=== PATIENT | male | born 1970 | race Caucasian/White ===

== ENCOUNTER 2019-04-16 21:19 | Emergency (ER) | payer BC, SELFPAY ==
[2019-04-16 21:23] VITALS: BP 148/114; PULSE 98; RESP 18; TEMP 36.2; O2SAT 97
--- NOTE | 2019-04-16 21:25 | ED.GENADUL_ITS ---
Discharge Plan Disposition Patient Disposition: HOME Condition: Good Discharge Details Chief Complaint: Orthopedic Clinical Impression: Foot sprain Primary Care Provider: Renaldo Taylor ED Provider: Cyndi Rousseau Home Meds and New Rx's Prescriptions: New tramadol 50 mg tablet 50 mg PO Q6H PRN (Reason: pain) Qty: 5 RF: 0 Discharge Instructions Instructions: Tramadol (By mouth), Foot Sprain (ED) Additional Instructions: Encourage hydration. Encourage rest, ice, elevation. You may try topical options help with your discomfort such as Salonpas or lidocaine patches. Please follow-up with primary care in the next 1 to 2 weeks if not improving. If you develop any new or worsening symptoms please seek care urgently once again. If topical options are not sufficient, you may use the tramadol as prescribed, may take 1 tab every [address] for pain[address] not drive while taking this medication Referrals: Renaldo Taylor MD [Primary Care Provider] - Discharge Data Discharge Date/Time-TO BE ENTERED AT DEPARTURE: 04/16/19 23:47 Medical Decision Making Patient is a 48-year-old male his , chief complaint of right foot and ankle pain. He reports that yesterday he was at [place] with his daughter. Jumped off of the knee height fall onto a 6 inch foam pad and suffered a rotational injury. Immediately had pain. However, he was able to continue to participate in activities throughout the course the day. 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 It was after being sedentary at home after work that he developed excruciating pain. Began using crutches just prior to arrival. To take 1 of his 's tramadol's prior to arrival. Is endorsing pain on the dorsal aspect of the foot, notes a small area of swelling and ecchymosis. States his pain does go up into the anterior aspect of the ankle. Pain is worse with dorsiflexion and weightbearing status. Denies any altered sensation. Denies other injury the time the incident. And concern for possible Lisfranc injury. Plan for imaging. XR reviewed by radiologist: FINDINGS: Bones/joints: No acute fracture. Joint spaces are maintained. No ankle joint effusion. Soft tissues: Soft tissues are unremarkable. IMPRESSION: No acute fracture or traumatic joint malalignment. Consider CT or comparison to non weight-bearing view there is persistent concern for Lisfranc injury. Will order comparison weight bearing view of contralateral foot FINDINGS: Bones/joints: No acute fracture. Joint spaces are maintained. No joint effusion. Soft tissues: Soft tissues are unremarkable. IMPRESSION: No acute fracture or traumatic joint malalignment. Repeat imaging: IMPRESSION: No acute findings. In comparison to same day right foot radiograph, there is symmetric appearance of the bilateral Lisfranc joint complexes. Discussed these findings with the patient. Advised likely sprain strain. I encouraged rest, ice, elevation. Tylenol and/or ibuprofen as needed for discomfort. He did feel much relief when he was wearing his tight work boots today. I think he will benefit from a lace up ankle brace which will cover the foot and the ankle. He was given return precautions. Advised to follow-up with primary care in 2 weeks if not improving. He will continue to use crutches as needed. All of his questions and concerns were addressed and he is in agreement this plan. HPI General Mode of arrival: ambulatory (with crutches) . Date/Time Provider Initiated Documentation: 04/16/19 21:25 . Limitations to Documentation: no limitations . Information obtained by: patient, family () and RN notes reviewed . History of Present Illness 48 year old M presents to the emergency department with the chief complaint of right foot/ankle pain, described as moderate, with intensity rated at 8. Quality is described as aching, and is localized to the right and lower extremity. Patient reports no radiation. Patient started experiencing this day(s) (1) and it has been constant. Immobilization improves symptom(s), Movement worsens symptoms (worse when weight bearing) . Patient notes no other symptoms.. Patient did receive the following treatments prior to arrival, other (tramadol) Related Data Home Medications Medication Instructions Recorded Confirmed tramadol 50 mg PO Q6H PRN #5 tab 04/16/19 Previous Rx's Medication Instructions Recorded tramadol 50 mg PO Q6H PRN #5 tab 04/16/19 Allergies Allergy/AdvReac Type Severity Reaction Status Date / Time acetaminophen Allergy Severe Swelling/Ed Unverified 04/16/19 21:33 arlen ibuprofen Allergy Severe Swelling/Ed Unverified 04/16/19 21:33 arlen Review of Systems Constitutional Constitutional: Reports as per HPI, Denies chills, Denies fever(s), Denies headache(s) and Denies weakness ENT Ears, Nose, Mouth, and Throat: Denies headache(s) Cardiovascular Cardiovascular: Reports as per HPI Respiratory Respiratory: Reports as per HPI and Denies cough Musculoskeletal Musculoskeletal: Reports as per HPI and Denies tingling Integumentary/Breasts Skin/Breast: Reports as per HPI, Denies rash and Denies wounds Neurologic Neurologic: Reports as per HPI, Denies headache(s), Denies tingling, Denies paresthesias and Denies weakness [facility] Social History Smoking/Tobacco Use Status: Former Tobacco Use Drug use: Never Substance use type: does not use Do you feel safe at home: Yes Do you feel safe in your relationship?: Yes Exam Const General: cooperative, healthy appearing, comfortable, no acute distress, well developed and well groomed Nutritional Appearance: average body habitus and well nourished Orientation: alert and awake Resp Effort & Inspection: normal respiratory effort, able to speak in complete sentences and no respiratory distress Cardio Rate: regular rate Rhythm: regular rhythm Skin General skin exam: ecchymosis Neuro General: alert and awake Cognition: normal cognition Speech: speech normal Gait: normal gait Motor: muscle tone normal throughout Sensory Exam: no sensory deficits noted Extrem Right lower extremity: full ROM, normal capillary refill, knee Details: normal to inspection; no tenderness and no swelling, lower leg Details: normal to inspection and no edema; no tenderness, no localized swelling, no palpable cords, no ecchymosis, no crepitus, no deformity and no unusual warmth, ankle Details: normal to inspection, tenderness Location: anteriorly, no edema and normal ROM (pain with dorsiflexion); no swelling, no unusual warmth, no abrasions, no ecchymosis, no crepitus and achilles tendon exam normal and foot Details: normal capillary refill, tenderness Location: of the dorsal foot Location: proximally and over the Lisfranc joint and of the mid foot; not of the plantar foot, not of the great toe, not of any other digit, not of the calcaneus and not of the base of the 5th metatarsal, toes with normal ROM, no edema, ecchymosis (as drawn below), vascular exam Details: dorsalis pedis pulse present, posterior tibial pulse present and normal capillary refill and motor- sensory exam Details: light-touch normal; no unusual warmth, no edema, no abrasion, no laceration and no crepitus; no cyanosis Ankle/foot/toe images: 1. small area of ecchymosis with surrounding swelling Psych Appearance: grossly normal and well kempt Mental Status: mental status grossly normal Speech and Movement: speech and movement normal
--- NOTE | 2019-04-16 21:45 | DI.RAD_ITS ---
EXAM: XR FOOT RT COMPLETE INDICATION: midfoot pain,jumping injury,? Lisfranc injury COMPARISON: RIGHT FOOT COMPLETE from 09/18/2010 TECHNIQUE: 2D digital imaging was performed. FINDINGS: No fracture or dislocation is seen. There is a high plantar arch. There are degenerative changes at the talonavicular joint and to a lesser extent at the tarsal metatarsal joints. IMPRESSION: No acute abnormality.
--- NOTE | 2019-04-16 21:45 | DI.RAD_ITS ---
EXAM: XR ANKLE RT COMPLETE INDICATION: anterior pain,KUMPED FROM LANDING,? LISFRANC INJURY COMPARISON: No exams were available for comparison TECHNIQUE: 2D digital imaging was performed. FINDINGS: There is mild soft tissue swelling around the lateral malleoli. No fracture or ankle mortise widenin g is seen. There is spurring at the talonavicular joint. IMPRESSION: No acute abnormality.
--- NOTE | 2019-04-16 22:27 | DI.VRAD_ITS ---
PROCEDURE INFORMATION: Exam: XR Right Foot Complete Exam date and time: 04/16/2019 9:47 PM Age: 48 years old Clinical history: Injury or trauma; Injury history: 04/16/19; Initial encounter; Blunt trauma; Ankle and foot; Right; Injury details: Jumped onto a foam mat and pain mid foot and ankle. ; Additional info: Concern for lisfranc injury so images done weight bearing TECHNIQUE: Imaging protocol: XR Right foot. Views: 3 or more views. COMPARISON: No relevant prior studies available. FINDINGS: Bones/joints: No acute fracture. Joint spaces are maintained. No ankle joint effusion. Soft tissues: Soft tissues are unremarkable. IMPRESSION: No acute fracture or traumatic joint malalignment. Consider CT or comparison to non weight-bearing view there is persistent concern for Lisfranc injury. Dictated and Authenticated by: Zach Flores MD. Ordering:AMIRA Hanna MD
--- NOTE | 2019-04-16 22:30 | DI.VRAD_ITS ---
PROCEDURE INFORMATION: Exam: XR Right Ankle Exam date and time: 04/16/2019 9:47 PM Age: 48 years old Clinical history: Injury or trauma; Injury history: Jumped landing on a foam mat. Mid foot and ankle pain; Initial encounter; Blunt trauma; Ankle and foot; Right; Injury date: 04/16/19; Injury details: Ankle pain with weight bearing TECHNIQUE: Imaging protocol: XR Right ankle. Views: 3 or more views. COMPARISON: CR XR FOOT RT COMPLETE 04/16/2019 10:01 PM FINDINGS: Bones/joints: No acute fracture. Joint spaces are maintained. No joint effusion. Soft tissues: Soft tissues are unremarkable. IMPRESSION: No acute fracture or traumatic joint malalignment. Dictated and Authenticated by: Zach Flores MD. Ordering:AMIRA Hanna MD
--- NOTE | 2019-04-16 22:42 | DI.RAD_ITS ---
EXAM: XR FOOT LT LIMITED INDICATION: comparison weight bearing view. COMPARISON: RIGHT FOOT COMPLETE from 09/18/2010 XR ANKLE RT COMPLETE from 04/16/2019 XR FOOT RT COMPLETE from 04/16/2019 TECHNIQUE: 2D digital imaging was performed. FINDINGS: Weightbearing views are performed for comparison with the right foot. There is a tiny plantar calcan eal spur. There is a small, smoothly marginated bony density seen posterior to the talus. There is a high plantar arch. There are minimal degenerative changes. IMPRESSION: No acute abnormality.
--- NOTE | 2019-04-16 23:03 | DI.VRAD_ITS ---
PROCEDURE INFORMATION: Exam: XR Left Foot Exam date and time: 04/16/2019 10:42 PM Age: 48 years old Clinical history: Screening exam; Patient HX: No injury, comparison images done weightbearing TECHNIQUE: Imaging protocol: XR Left foot. Views: 1 or 2 views. COMPARISON: CR LEFT ANKLE COMPLETE 12/02/2013 12:13 PM FINDINGS: Bones/joints: Normal. Soft tissues: Normal. IMPRESSION: No acute findings. In comparison to same day right foot radiograph, there is symmetric appearance of the bilateral Lisfranc joint complexes. Dictated and Authenticated by: Zach Flores MD. Ordering:AMIRA Hanna MD
[2019-04-16] MEDS: traMADol 50 MG TAB 150 MG PO (23:47)
== END 2019-04-16 23:47 | disposition home or self-care (01) ==
PROVIDERS: Emergency Provider Physician Assistant; PCP Family Medicine
DX: S93.601A Unspecified sprain of right foot, initial encounter (principal); W18.43XA Slipping, tripping and stumbling without falling due to stepping from one level to another, initial encounter; Y93.44 Activity, trampolining
CPT/HCPCS: 99283; 73610; 73620; 73630; 99282; L1902

== ENCOUNTER 2020-09-24 01:43 | Outpatient (CLI) | payer MEDICAID, SELFPAY ==
--- NOTE | 2020-09-24 | DI.RAD_ITS ---
Exam(s) XR KNEE RT 3V AP,LAT,BALJIT EXAM: XR KNEE RT 3V AP,LAT,BALJIT CLINICAL HISTORY: RT KNEE PAIN, M25.569 TECHNIQUE: COMPARISON: CR XR KNEE LT 3V AP,LAT,BALJIT from 09/24/2020 FINDINGS: Three views were obtained. Cartilaginous joint spaces appear fairly well maintained as visualized. No gross knee joint effusion seen on the lateral view. No bony abnormality seen. IMPRESSION: RADIATION DOSE DELIVERED: Total DLP
--- NOTE | 2020-09-24 | DI.RAD_ITS ---
Exam(s) XR KNEE LT 3V AP,LAT,BALJIT EXAM: XR KNEE LT 3V AP,LAT,BALJIT CLINICAL HISTORY: LT KNEE PAIN, M25.569 TECHNIQUE: COMPARISON: No exams were available for comparison FINDINGS: Three views were obtained. Cartilaginous joint spaces appear fairly well maintained as visualized. No significant bony abnormality seen. No gross knee joint effusion seen on the lateral view. IMPRESSION: RADIATION DOSE DELIVERED: Total DLP
== END 2020-09-24 02:03 ==
PROVIDERS: PCP Family Medicine; Visit Provider Physician Assistant
DX: M25.561 Pain in right knee (principal); M25.562 Pain in left knee
CPT/HCPCS: 73562

== ENCOUNTER 2020-10-13 07:41 | Outpatient (REF) | payer MEDICAID, SELFPAY ==
[2020-10-13 17:05] LABS: Anion Gap 8.6 mmol/L (3-11); BUN 20 mg/dL (7-18); CO2 28.4 mmol/L (21.0-32.0); CREATININE 1.6 mg/dL (0.70-1.30); Calcium 9.4 mg/dL (8.5-10.1); Calculated LDL 200 mg/dL (<100); Chloride 105 mmol/L (98-107); Cholesterol 281 mg/dL (<200); Estimated GFR 45.98 (mL/min/1.73m2); Glucose 112 mg/dL (74-106); HDL Cholesterol 56 mg/dL (40-60); Potassium 4.7 mmol/L (3.5-5.1); Sodium 142 mmol/L (136-145); Triglyceride 128 mg/dL (<150)
[2020-10-14 09:01] LABS: PSA, Screening 0.7 ng/mL (0.0-3.5)
== END 2020-10-13 07:42 | disposition home or self-care (01) ==
LOC: NCHCN 07:41
PROVIDERS: PCP Family Medicine; Visit Provider Physician Assistant
DX: Z13.220 Encounter for screening for lipoid disorders (principal); Z13.228 Encounter for screening for other metabolic disorders; Z12.5 Encounter for screening for malignant neoplasm of prostate
CPT/HCPCS: 80048; 80061; 84153

== ENCOUNTER 2021-04-03 03:17 | Outpatient (CLI) | payer MEDICAID, SELFPAY ==
[2021-04-03 11:01] LABS: Source Nasal/Nares
[2021-04-03 15:42] LABS: COVID-19 PCR Negative (Negative)
== END 2021-04-03 03:18 | disposition home or self-care (01) ==
LOC: LBO 03:17
PROVIDERS: PCP Physician Assistant; Visit Provider Surgery
DX: Z20.822 Contact with and (suspected) exposure to COVID-19 (principal); Z01.818 Encounter for other preprocedural examination
CPT/HCPCS: 87635

== ENCOUNTER 2021-04-06 06:22 | Day surgery (SDC) | payer MEDICAID, SELFPAY ==
[2021-04-06 06:30] VITALS: BP 123/81; PULSE 62; RESP 16; TEMP 36.2; O2SAT 98
--- NOTE | 2021-04-06 06:42 | HPE_ITS ---
Date of service: 04/06/21 Time of Service: 06:42 Assessment and Plan Assessment and plan (1) Screening for colon cancer: Status: Acute Assessment and plan: The patient is here for Colonoscopy pre-op. He has no family history of colon cancer. He has not had any bowel habit changes. -Discussed colonoscopy bowel prep as well as the procedure. Discussed possible complications of the procedure to include bleeding, pain, perforation, missed small lesion/polyp, sore throat, aspiration and adverse reaction to the medications. Questions were answered to patient?s satisfaction. No guarantees were implied or given. Proceed with colonoscopy History of Present Illness Narrative: 50 y/o male with history of hyperlipidemia presents for his first colonoscopy screening pre-op. He denies a family history of colon cancer. He denies any changes in bowel habits including bloody or black tarry stools, abdominal pain, diarrhea or constipation. He denies constitutional symptoms. Denies use of marijuana or any other recreational or illegal drugs. He denies chest pain, palpitations, dyspnea or dyspnea with exertion. He reports being physically active participating in outdoor activities and mountain biking. He denies prior history or family history of adverse reactions or complications with anesthesia. The patient denies any history of stroke, [place], seizures, bleeding or clotting disorders. He denies having any implanted metal in his body. No changes in his health since he was seen Review of Systems Cardiovascular Cardiovascular: Denies chest pain, Denies chest pain at rest, Denies irregular heart rhythm, Denies dyspnea and Denies dyspnea on exertion Respiratory Respiratory: Denies cough, Denies dyspnea and Denies dyspnea on exertion Gastrointestinal Gastrointestinal: Reports as per HPI Genitourinary Genitourinary: Denies dysuria, Denies urinary incontinence and Denies urinary urgency Endocrine Endocrine: Reports system reviewed and no additional complaints, except as documented Hematologic/Lymphatic Hematologic/Lymphatic: Denies easy bruising and Denies lymphadenopathy [facility] Medical History (Updated 04/06/21 @ 06:43 by Lana Levin MD) Headache Hyperlipidemia Pityriasis versicolor Solitary kidney Social History Smoking/Tobacco Use Status: Former Tobacco Use Quit Date: 05/23/19 Smoking risk assessment performed?: Yes Alcohol Intake: current Alcohol Intake frequency: holidays/special occasions only Alcohol type: beer and hard liquor Drug use: Never Substance use type: does not use Current gender identity: male Additional Social history: unable to assess [employer] Meds Allergies and Home Medications Allergies Allergy/AdvReac Type Severity Reaction Status Date / Time acetaminophen Allergy Severe Swelling/Ed Unverified 04/06/21 06:37 arlen ibuprofen Allergy Severe Swelling/Ed Unverified 04/06/21 06:37 arlen aspirin Allergy Intermediate unhknown Verified 04/06/21 06:37 Home Medications Medication Instructions Recorded Confirmed Type bisacodyl 5 mg tablet,delayed 5 mg PO ONCE #4 tab 02/26/21 04/06/21 Rx release polyethylene glycol 3350 17 238 g PO ONCE #238 g 02/26/21 04/06/21 Rx gram/dose oral powder Exam Const General: healthy appearing and comfortable Resp Effort & Inspection: normal respiratory effort Auscultation: clear to auscultation bilaterally Cardio Rate: regular rate Rhythm: regular rhythm Heart Sounds: no click, no gallops and no murmurs Results Last Vital Signs Temp 97.2 F L 04/06/21 06:30 Pulse 62 04/06/21 06:30 Resp 16 04/06/21 06:30 BP 123/81 04/06/21 06:30 Pulse Ox 98 04/06/21 06:30
--- NOTE | 2021-04-06 06:44 | W.COLOREPORT ---
Colonoscopy Report Date of procedure: 04/06/21 Pre-op diagnosis general: Colon Cancer Screening Post-op diagnosis procedure note: other (colorectal polyps) Procedure: Colonoscopy with polypectomy Surgeon: Lana Levin Anesthesia Type: General:No Airway (Jonel Leyva CRNA) Estimated blood loss (mL): 3 Pathology: other (Transverse, descending and sigmoid polyps) Complications: None Disposition: same day Indications: The patient is here for Colonoscopy pre-op. He has no family history of colon cancer. He has not had any bowel habit changes. -Discussed colonoscopy bowel prep as well as the procedure. Discussed possible complications of the procedure to include bleeding, pain, perforation, missed small lesion/polyp, sore throat, aspiration and adverse reaction to the medications. Questions were answered to patient?s satisfaction. No guarantees were implied or given. Prep: Miralax/Dulcolax Procedure Start Time: 07:29 Procedure End Time: 07:57 Retraction Time: 16 minutes Findings: 3 sessile polyps Procedure Description: After informed consent was obtained the patient was taken to the procedure room and placed in a left decubitous position. Monitors were applied and a time out was done. The patients name, date of , procedure, allergies to medications and metal in their body was reviewed. The patient was then sedated. Once sedated and comfortable a rectal exam was done. External exam was normal. Internal exam revealed a normal sphincter tone and no palpable masses. The prostate felt smooth and normal in size. The scope was then introduced and retro-flexed. No internal hemorrhoids, polyps or masses were identified on retro-flexion. The scope was then advanced to the cecum without difficulty. The ileocecal valve and appendiceal orifice were identified. The prep was good. The scope was then slowly retracted over 16 minutes back into the rectum. Polyps were removed with cold forceps in the Transverse colon, descending colon and sigmoid colon. All three polyps were < 10 mm in size. There was no diverticulosis noted. The scope was removed and the patient was woken up and taken back to Same day surgery in stable condition. The patient tolerated the procedure well and there were no immediate complications. Follow up: The patient should follow up in 3-5 years unless they develop changes in bowel habits or other new gastrointestinal complaints.
--- NOTE | 2021-04-06 06:45 | W.PM.DSUDISC ---
Discharge Plan Disposition Patient Disposition: HOME Condition: Good Discharge Details Reason For Visit: Colonoscopy Attending Provider: Lana Levin Primary Care Provider: Zach Pedraza Home Meds and New Rx's Prescriptions: Discontinued polyethylene glycol 3350 17 gram/dose powder 238 g PO ONCE Qty: 238 RF: 0 bisacodyl [Dulcolax (bisacodyl)] 5 mg tablet,delayed release (DR/EC) 5 mg PO ONCE Qty: 4 RF: 0 Discharge Instructions Instructions: Colorectal Polyps (DC) Additional Instructions: Findings: 3 polyps Follow up: 3-5 years Please call if you develop: fevers >101.5 Nausea or Vomiting Abdominal pain that is not transient Rectal bleeding that is more then a tbsp A hard abdomen and inability to pass gas DAY SURGERY UNIT POST ENDOSCOPY INSTRUCTIONS Instructions for everyone who is given Anesthesia: For your safety, please do the following for the next 24 Hours: a. Do not drive or operate dangerous equipment b. Do not drink alcohol beverages or use any recreational drugs for the first 24 hours or while taking pain medications. The medications in your body may have a reaction that can be dangerous. c. Do not make any important decisions or sign any important papers 1. Generally there are no restrictions on your activity after a day or so has gone by, but you may feel a bit fatigued for a few days. 2. After you arrive home you may have a light meal and return to a normal diet as you can tolerate it without feeling sick to your stomach. 3. After surgery, you may feel pain or discomfort. This should be only transient, but if it persists please contact your doctor. 4. If there are any questions regarding the findings of your procedure, please feel free to contact your doctor. 6. If you are unable to contact your doctor with a problem, contact the hospital at [phone]. 7. Continue all your regular medications unless directed otherwise. I understand the above instructions and have no questions. Signature of Patient or Responsible Adult Escort Date/Time Name of Responsible Adult Escort Signature of Nurse Date/Time Activity:: Activity as Tolerated Diet:: As Tolerated Discharge Orders Discharge Orders: Discharge Order (Routine); Ordered 04/06/21 Ordered By: Lana Levin DS: Diagnosis Discharge Diagnosis (1) Screening for colon cancer: Status: Acute
[2021-04-06] MEDS: Lactated Ringers 1,000 ML 80 ML IV (06:51)
--- NOTE | 2021-04-06 07:00 | W.ANESPRE ---
General Info Date of Service Date Performed: 04/06/21 Height: 5 ft 8 in Weight: 81.7 kg Body Mass Index (BMI): 27.3 Surgical Procedure: Operation Date: 04/06/21 07:35 Proposed Procedures Side Surgeon p Colonoscopy Lana Levin MD Meds Allergies and Home Medications Allergies Allergy/AdvReac Type Severity Reaction Status Date / Time acetaminophen Allergy Severe Swelling/Ed Unverified 04/06/21 06:37 arlen ibuprofen Allergy Severe Swelling/Ed Unverified 04/06/21 06:37 arlen aspirin Allergy Intermediate unhknown Verified 04/06/21 06:37 Home Medication Medication Instructions Recorded bisacodyl 5 mg tablet,delayed 5 mg PO ONCE #4 tab 02/26/21 release polyethylene glycol 3350 17 238 g PO ONCE #238 g 02/26/21 gram/dose oral powder Current Visit Medications: Current Medications Generic Name Dose Route Start Last Admin Trade Name Freq PRN Reason Stop Dose Admin Hyoscyamine Sulfate 0.125 mg 04/06/21 06:46 Hyoscyamine 0.125 Mg Sl/Oral/Chew SL DIRECTED PRN Ringer's Solution 1,000 mls @ 80 mls/hr 04/06/21 06:00 04/06/21 06:51 IV 05/03/21 23:59 80 mls/hr INFUSION CHELSEY Administration IV Miscellaneous Supplies 1 each 04/06/21 06:00 Iv Access IV 05/03/21 23:59 DIRECTED CHELSEY Ondansetron HCl 4 mg 04/06/21 06:46 Ondansetron 4 Mg/2 Ml Vial IVP Q4H PRN PRN Nausea / Vomiting Sodium Chloride 0 ml 04/06/21 06:00 Normal Saline Flush 10 Ml Syr IV 05/03/21 23:59 PRN PRN Sodium Chloride 0 ml 04/06/21 06:00 Normal Saline 10 Ml Vial IJ 05/03/21 23:59 DIRECTED PRN Sterile Water 0 ml 04/06/21 06:00 Water,Injection,Sterile 10 Ml Vial IJ 05/03/21 23:59 DIRECTED PRN PFSH Active Problems Active Problems: Problem Status Onset Code Screening for colon cancer Z12.11 Headache R51.9 Hyperlipidemia E78.5 Solitary kidney Q60.0 Pityriasis versicolor B36.0 Medical History Active Problem List Screening for colon cancer (Acute) Headache (Acute) Hyperlipidemia (Acute) Solitary kidney (Acute) Pityriasis versicolor (Acute) Medical History Broken leg and ribs Collar bone fracture Headache Hyperlipidemia Pityriasis versicolor Solitary kidney Tobacco Smoking/Tobacco Use Status: Former Tobacco Use Alcohol Alcohol Intake: current Alcohol intake frequency: holidays/special occasions only Alcohol type: beer and hard liquor Substance Use Substance use: Never Substance use type: does not use Vital Signs and Lab Results Vital Signs Most Recent Vital Signs in EMR: Most Recent Vital Signs Temp Pulse Resp BP Pulse Ox 36.2 C L 62 16 123/81 98 04/06/21 06:30 04/06/21 06:30 04/06/21 06:30 04/06/21 06:30 04/06/21 06:30 Lab Results Blood Type / Crossmatch: No Data to Display Complete Blood Count: No Data to Display Complete Metabolic Panel: No Data to Display Liver Function Panel: No Data to Display Coagulation Panel: No Data to Display Cardiac Panel: No Data to Display Arterial Blood Gas: No Data to Display Venous Blood Gas: No Data to Display Pancreas Panel: No Data to Display Thyroid Panel: No Data to Display Infectious Disease: Coronavirus (COVID-19)(PCR) Negative (Negative) 04/03/21 08:53 04/03/21 Coronavirus 2019 Source Nasal/Nares 04/03/21 08:53 04/03/21 Blood Cultures: No Data to Display Toxicology Panel: No Data to Display Anesthesia Assessment and Plan Anesthesia History Personal History: No History of General Anesthesia Family History: No Family History of Anesthesia Complications Exercise Tolerance Exercise Tolerance: Metabolic Equivalents>4 Pertinent Negatives Pertinent Negatives: No Symptoms of GERD Cardiac & Pulmonary Exam Cardiac Exam: Normal S1/S2 Heart Sounds Pulmonary Exam: Clear Bilateral Breath Sounds Implantable Cardiac Device Does patient have a Pacemaker or an ICD?: No Airway Exam Known Difficult Airway: No Mallampati Class: 2 Mouth Opening: Normal (> 3cm) Thyromental Distance: Greater than 3 cm Neck Range of Motion: Full ROM Neck Circumference: Normal Teeth Condition: Normal Dentition ASA Classification ASA Score: ASA 2 Emergency Case?: No NPO Status NPO Status: NPO Clears >2 hours, Solids >8 hours Anesthesia Plan Resuscitation Status: Full Code Anesthesia Technique: General Anesthesia Airway Planned: Natural Airway Monitors Used: Standard Monitors
[2021-04-06 07:03] VITALS: BMI 27.3
--- NOTE | 2021-04-06 07:46 | BOWEL_PTH ---
PATIENT: Micah Fuchs LOC: [facility] U#:[id number] AGE/SX: 50/M ROOM: RE04/06/[address]: Lana Levin MD : 1970 BED: DIS: 04/06/2021 SPEC #: [id number] RECD: 04/06/21 13:02 STATUS: JEANNE REQ #: [id number] JOSE MIGUEL: 04/06/21 07:[address]: Lana Levin DEPT: Surgical Specimen RECD BY: Nancy Albright ENTERED: 04/06/21 13:03 SP TYPE: Bowel OTHR DR: Zach Pedraza Tissues: 1 - BIOPSY BOWEL 2 - BIOPSY BOWEL 3 - BIOPSY BOWEL Procedures: GROSS AND MICRO LEVEL 4 Comments: [id number]
[2021-04-06 08:07] VITALS: BP 119/73; PULSE 72; RESP 20; TEMP 36.3; O2SAT 95
[2021-04-06] MEDS: Hyoscyamine 0.125 MG SL/ORAL/CHEW SL (08:33)
[2021-04-06 08:35] VITALS: BP 131/95; PULSE 56; RESP 18; TEMP 36.7; O2SAT 98
--- NOTE | 2021-04-06 08:51 | W.ANESPOSTOP ---
Postoperative Evaluation Date, Time and Location Date Performed: 04/06/21 Time Performed: 08:52 Patient Location: Day Surgery Unit Vital Signs Most Recent Imported Vital Signs: Most Recent Vital Signs Temp Pulse Resp BP Pulse Ox 36.7 C 56 L 18 131/95 H 98 04/06/21 08:35 04/06/21 08:35 04/06/21 08:35 04/06/21 08:35 04/06/21 08:35 Pain Score Most Recent Pain Score: Most Recent Pain Score Pain Level 3 04/06/21 08:35 Assessment Mental Status: Awake (Alert & Oriented to Patient Baseline) Airway and Respiratory Function: Patent airway with normal (patient baseline) respiratory exam Cardiovascular Function: Hemodynamically Stable Hydration Status: Adequately Hydrated Nausea & Vomiting: No Nausea or Vomiting Pain: Pain is tolerable per patient Peripheral Nerve Block: Patient did not receive a nerve block
== END 2021-04-06 09:10 | disposition home or self-care (01) ==
PROVIDERS: PCP Physician Assistant; Visit Provider Surgery
PROC: 0DJD8ZZ Inspection of Lower Intestinal Tract, Via Natural or Artificial Opening Endoscopic (ICD-10-PCS; CPT 45378; principal; 2021-04-06 07:30)
DX: Z12.11 Encounter for screening for malignant neoplasm of colon (principal); D12.3 Benign neoplasm of transverse colon; D12.4 Benign neoplasm of descending colon; D12.5 Benign neoplasm of sigmoid colon
CPT/HCPCS: 45380; 88305; J2704; J3490

== ENCOUNTER 2021-10-02 07:56 | Outpatient (REF) | payer MEDICAID, SELFPAY ==
[2021-10-02 15:39] LABS: ALT 37 U/L (16-63); AST 19 U/L (15-37); Albumin 3.8 g/dL (3.4-5.0); Alkaline Phosphatase 37 U/L (46-116); Anion Gap 9.7 mmol/L (3-11); BUN 23 mg/dL (7-18); Bilirubin, Total 0.5 mg/dL (0.2-1.0); CO2 26.3 mmol/L (21.0-32.0); CREATININE 1.4 mg/dL (0.70-1.30); Calculated LDL 196 mg/dL (<100); Chloride 106 mmol/L (98-107); Cholesterol 277 mg/dL (<200); Estimated GFR 53.43 (mL/min/1.73m2); Glucose 106 mg/dL (74-106); HDL Cholesterol 60 mg/dL (40-60); Potassium 4.7 mmol/L (3.5-5.1); Sodium 142 mmol/L (136-145); Total Protein 7.2 g/dL (6.4-8.2); Triglyceride 108 mg/dL (<150)
[2021-10-02 15:46] LABS: Hemoglobin A1C 5.5 % (<5.7)
[2021-10-02 22:14] LABS: PSA, Screening 0.7 ng/mL (<=3.5)
== END 2021-10-02 07:57 | disposition home or self-care (01) ==
LOC: NCHCN 07:56
PROVIDERS: PCP Physician Assistant; Visit Provider Physician Assistant
DX: E78.5 Hyperlipidemia, unspecified (principal); R73.9 Hyperglycemia, unspecified; Z12.5 Encounter for screening for malignant neoplasm of prostate
CPT/HCPCS: 80053; 80061; 84153; 83036

== ENCOUNTER 2022-12-20 16:20 | Outpatient (REF) | payer MEDICAID, SELFPAY ==
[2022-12-20 21:20] LABS: Abs Immature Grans 0.02 10^3/uL (0.0-0.06); Absolute Basophil Count 0.08 10^3/uL (0.0-0.2); Absolute Lymphocyte Count 1.77 10^3/uL (1.2-3.4); Absolute Monocyte Count 0.64 10^3/uL (0.1-0.8); Absolute Neutrophil Count 5.19 10^3/uL (1.2-6.7); Eosinophils % 1.3; HCT 50.2 % (40.0-50.0); HGB 16.7 g/dL (13.5-17.5); Immature Grans % 0.3; Lymphocytes % 22.7; MCHC 33.3 % (32.0-36.0); MCV 87 fL (80-95); MPV 9.5 fL (8.0-11.0); Monocytes % 8.2; Neutrophils % 66.5; Platelet Count 265 10^3/uL (130-400); RBC 5.76 10^6/uL (4.36-5.78); RDW-SD 38.5 fL
[2022-12-20 21:22] LABS: ESR 23 mm/hr (0-20)
[2022-12-20 21:36] LABS: C-Reactive Protein 6.77 mg/dL (0.0-0.3); Uric Acid 8.6 mg/dL (3.5-7.2)
[2022-12-22 11:46] LABS: Lyme Ab w Rflx to Lyme Confirm Negative (Negative)
== END 2022-12-20 16:21 | disposition home or self-care (01) ==
LOC: NCHCN 16:20
PROVIDERS: PCP Physician Assistant; Visit Provider Nurse Practitioner Family
DX: M79.671 Pain in right foot (principal); R79.0 Abnormal level of blood mineral; M25.571 Pain in right ankle and joints of right foot; R79.82 Elevated C-reactive protein (CRP); E79.0 Hyperuricemia without signs of inflammatory arthritis and tophaceous disease
CPT/HCPCS: 85652; 84550; 85025; 86140; 86618

== ENCOUNTER 2023-01-03 18:56 | Outpatient (REF) | payer BC, SELFPAY ==
[2023-01-03 14:34] LABS: ALT 20 U/L (16-63); AST 9 U/L (15-37); Albumin 3.5 g/dL (3.4-5.0); Alkaline Phosphatase 37 U/L (46-116); Anion Gap 5.8 mmol/L (3-11); BUN 18 mg/dL (7-18); Bilirubin, Total 0.5 mg/dL (0.2-1.0); CO2 32.2 mmol/L (21.0-32.0); CREATININE 1.5 mg/dL (0.70-1.30); Calcium 9.5 mg/dL (8.5-10.1); Calculated LDL 187 mg/dL (<100); Chloride 102 mmol/L (98-107); Cholesterol 293 mg/dL (<200); Estimated GFR 55.67 (mL/min/1.73m2); Glucose 86 mg/dL (74-106); HDL Cholesterol 83 mg/dL (40-60); Potassium 4.3 mmol/L (3.5-5.1); Sodium 140 mmol/L (136-145); Triglyceride 119 mg/dL (<150)
[2023-01-03 14:38] LABS: Hemoglobin A1C 5.6 % (<5.7)
[2023-01-03 23:12] LABS: PSA, Screening 0.8 ng/mL (<=3.5)
== END 2023-01-03 18:57 | disposition home or self-care (01) ==
LOC: NCHCN 18:56
PROVIDERS: PCP Physician Assistant; Visit Provider Physician Assistant
DX: Z00.00 Encounter for general adult medical examination without abnormal findings (principal); Z13.220 Encounter for screening for lipoid disorders; Z13.1 Encounter for screening for diabetes mellitus; Z12.5 Encounter for screening for malignant neoplasm of prostate; Z13.228 Encounter for screening for other metabolic disorders
CPT/HCPCS: 80053; 80061; 84153; 83036

== ENCOUNTER 2023-02-07 18:55 | Outpatient (REF) | payer BC, SELFPAY ==
[2023-02-07 19:49] LABS: Anion Gap 5.7 mmol/L (3-11); BUN 19 mg/dL (7-18); CO2 30.3 mmol/L (21.0-32.0); CREATININE 1.4 mg/dL (0.70-1.30); Calcium 10.1 mg/dL (8.5-10.1); Chloride 103 mmol/L (98-107); Estimated GFR 60.47 (mL/min/1.73m2); Glucose 109 mg/dL (74-106); Potassium 4.7 mmol/L (3.5-5.1); Sodium 139 mmol/L (136-145); Uric Acid 7.6 mg/dL (3.5-7.2)
== END 2023-02-07 18:56 | disposition home or self-care (01) ==
LOC: NCHCN 18:55
PROVIDERS: PCP Physician Assistant; Visit Provider Nurse Practitioner Family
DX: Q60.0 Renal agenesis, unilateral (principal); M10.9 Gout, unspecified
CPT/HCPCS: 80048; 84550

== ENCOUNTER 2023-04-18 22:24 | Outpatient (REF) | payer BC, SELFPAY ==
[2023-04-18 15:07] LABS: ALT 45 U/L (16-63); Calculated LDL 155 mg/dL (<100); Cholesterol 239 mg/dL (<200); HDL Cholesterol 63 mg/dL (40-60); Triglyceride 109 mg/dL (<150)
== END 2023-04-18 22:25 | disposition home or self-care (01) ==
LOC: NCHCN 22:24
PROVIDERS: PCP Physician Assistant; Visit Provider Physician Assistant
DX: E78.5 Hyperlipidemia, unspecified (principal)
CPT/HCPCS: 80061; 84460

== ENCOUNTER → 2023-09-28 17:19 | Outpatient (CLI) | payer BC, SELFPAY ==
--- NOTE | 2023-09-28 | DI.RAD_ITS ---
Exam(s) XR FEMUR RT EXAM: XR FEMUR RT CLINICAL HISTORY: ICD-10: M79.604 PAIN IN RIGHT LOWER LIMB. TECHNIQUE: 2D digital imaging was performed of the right femur. Four images were obtained. AP and l ateral views were obtained. COMPARISON: No exams were available for comparison FINDINGS: BONES: No acute fracture is present. No bony destructive lesion is seen. Visualized portion of knee a nd hip joints are unremarkable. SOFT TISSUE: Normal. IMPRESSION: Unremarkable radiographs of the right femur. DATA REPOSITORY: RADIATION DOSE DELIVERED:
--- NOTE | 2023-09-28 18:27 | DI.VRAD_ITS ---
PROCEDURE INFORMATION: Exam: XR Right Femur Exam date and time: 09/28/2023 5:37 PM Age: 53 years old Clinical indication: Other: Pain right lower limb TECHNIQUE: Imaging protocol: Radiologic exam of the right femur. Views: 2 views. COMPARISON: CR XR KNEE RT 3V AP,LAT,BALJIT 09/24/2020 5:01 PM FINDINGS: Bones/joints: Osseous alignment is normal. No acute fracture. No significant arthritic change. Soft tissues: Unremarkable. IMPRESSION: Negative right femur Dictated and Authenticated by: Ga Russell MD. Ordering:JOSEE Castro MD
== END ==
PROVIDERS: PCP Physician Assistant; Visit Provider Physician Assistant Medical
DX: M79.604 Pain in right leg (principal)
CPT/HCPCS: 73552

== ENCOUNTER 2024-04-24 11:50 | Outpatient (REF) | payer BC, SELFPAY ==
[2024-04-24 15:17] LABS: Calculated LDL 137 mg/dL (<100); Cholesterol 222 mg/dL (<200); HDL Cholesterol 66 mg/dL (40-60); Triglyceride 96 mg/dL (<150)
[2024-04-24 15:31] LABS: Uric Acid 7.8 mg/dL (3.5-7.2)
[2024-04-24 15:32] LABS: Hemoglobin A1C 5.6 % (<5.7)
[2024-04-24 23:41] LABS: PSA, Screening 0.6 ng/mL (<=3.5)
== END 2024-04-24 11:51 | disposition home or self-care (01) ==
LOC: NCHCN 11:50
PROVIDERS: PCP Physician Assistant; Visit Provider Physician Assistant
DX: M10.9 Gout, unspecified (principal); E78.5 Hyperlipidemia, unspecified; R73.9 Hyperglycemia, unspecified; Z12.5 Encounter for screening for malignant neoplasm of prostate
CPT/HCPCS: 80061; 84153; 83036; 84550

== ENCOUNTER 2024-10-22 14:33 | Emergency (ER) | payer BC, SELFPAY ==
--- NOTE | 2024-10-22 14:30 | RT.EKG_ITS ---
APPROVED REPORT Exam: Resting ECG Reason for Exam: Patient Location: E HR:56 bpm ECG Measurements Heart Rate 56 AXIS SD 164 P 64 QRSd 93 QRS -30 QT 415 T 34 QTc 400 Conclusion Sinus bradycardia...rate< 60 Left axis deviation...QRS axis (-30,-90)
[2024-10-22 14:34] VITALS: BP 146/85; PULSE 63; RESP 20; TEMP 36.2; O2SAT 98
--- NOTE | 2024-10-22 16:07 | W.ED.GENAD ---
Discharge Plan Disposition Patient Disposition: Home Condition: Stable Discharge Details Chief Complaint: Chest Pain Clinical Impression: Chest pain Primary Care Provider: Zach Pedraza ED Provider: Mo Chandra Discharge Instructions Additional Instructions: Your workup today did not show any concerning findings at this time. Follow-up with your primary care provider. If you feel more ill or have severe worsening pain return to the emergency department for reevaluation. HPI General Mode of arrival: ambulatory. Date/Time Provider Initiated Documentation: 10/22/24 14:39. Limitations to Documentation: no limitations. Information obtained by: patient. History of Present Illness 54 year old M presents to the emergency department with the chief complaint of chest tightness, described as moderate, Quality is described as other (tightness), and is localized to the chest. Patient reports no radiation. Patient started experiencing this day(s) (1) and it has been intermittent. No relieving factors improve symptom(s), No exacerbating factors reported . Patient notes denies nausea/vomiting and shortness of breath. Patient did receive the following treatments prior to arrival, none Related Data Allergies Allergy/AdvReac Type Severity Reaction Status Date / Time acetaminophen Allergy Severe Swelling/Ed Unverified 04/06/21 06:37 arlen ibuprofen Allergy Severe Swelling/Ed Unverified 04/06/21 06:37 arlen aspirin Allergy Intermediate unhknown Verified 04/06/21 06:37 General Stated Complaint: Chest Pain CANDICE: 3 Review of Systems All systems reviewed & are unremarkable except as noted in HPI and below Constitutional Constitutional: Denies chills, Denies fever(s) and Denies weakness Cardiovascular Cardiovascular: Reports chest pain and Denies dyspnea Respiratory Respiratory: Denies cough and Denies dyspnea Gastrointestinal Gastrointestinal: Denies abdominal pain, Denies nausea and Denies vomiting Integumentary/Breasts Skin/Breast: Denies rash Neurologic Neurologic: Denies weakness Psychiatric Psychiatric: Denies depression Exam Const General: no acute distress Orientation: alert HENMT Head: normal to inspection Ears: external ears normal General nose exam: external nose normal Mouth: moist mucous membranes Eyes General: appearance normal, both eyes and all related structures Neck Neck: normal visual inspection Resp Effort & Inspection: normal respiratory effort and able to speak in complete sentences Auscultation: clear to auscultation bilaterally Cardio Jugular venous pressure: no JVD Rate: regular rate Heart Sounds: no murmurs Skin General skin exam: no rashes or lesions noted Neuro General: patient alert and patient oriented x3 Extrem General: normal to inspection Psych Mental Status: mental status grossly normal Course Vital Signs Vital signs: Vital Signs Temperature 36.2 C L 10/22/24 14:34 Pulse 63 10/22/24 14:34 Respiratory Rate 20 10/22/24 14:34 Blood Pressure 146/85 H 10/22/24 14:34 Pulse Oximetry 98 10/22/24 14:34 Temperature 36.2 C L 10/22/24 14:34 Temperature Source Skin 10/22/24 14:34 Pulse 63 10/22/24 14:34 Respiratory Rate 20 10/22/24 14:34 Blood Pressure 146/85 H 10/22/24 14:34 Blood Pressure Position Sitting 10/22/24 14:34 Pulse Oximetry 98 10/22/24 14:34 Oxygen Delivery Method Room Air 10/22/24 14:34 Oxygen Flow Rate 0 10/22/24 14:34 Pain Level 3 10/22/24 14:34 Medical Decision Making 54-year-old male with a history of hyperlipidemia not on medication currently who comes in with intermittent chest tightness sensation. Denies any increased pain with exertion, no diaphoresis or vomiting. He says that his face felt flushed last night and this morning for few seconds. He is well-appearing speaking full sentences. He has clear lung sounds, no JVD, no murmurs, no leg swelling or calf tenderness. Unclear etiology for his symptoms, will check CBC, CMP and troponins. He has no tearing back pain so I doubt dissection and he has no tachycardia or hypoxia so I doubt PE. Chest x-ray negative, labs unremarkable including delta troponin. Creatinine is at baseline and has known solitary kidney. He is stable and well-appearing, I feel he is stable for discharge to follow-up with his PCP, return precautions given Differential Diagnosis Differential Diagnosis: NSTEMI, chest wall pain Medical Records Medical records reviewed: Yes I reviewed the patient's medical records. Lab Data Lab results reviewed: Yes I reviewed the patient's lab results. ECG Data Attestation: I personally reviewed and interpreted this ECG (s) as follows: Prior ECG tracings: not available for review Interpretation: Sinus bradycardia, rate of 56 no STEMI Quality:SDOH Health Related Social Needs: No Data to Display [facility] All Active Problems (Updated 10/22/24 @ 17:29 by Mo Chandra MD) Chest pain (Acute) Tubular adenoma (Acute ~03/2021) Screening for colon cancer (Acute) Headache (Acute) Hyperlipidemia (Acute) Solitary kidney (Acute) Pityriasis versicolor (Acute) Medical History (Updated 10/22/24 @ 17:29 by Mo Chandra MD) Collar bone fracture Broken leg and ribs Surgical History (Updated 05/13/21 @ 13:37 by Suha Bernardo CMA) History of colonoscopy (~03/2021) Social History Smoking/Tobacco Use Status: Former Tobacco Use Quit Date: 05/23/19 Smoking risk assessment performed?: Yes Alcohol Intake: current Alcohol Intake frequency: holidays/special occasions only Alcohol type: beer and hard liquor Drug use: Never Substance use type: does not use Current gender identity: male Do you feel safe at home: Yes Do you feel safe in your relationship?: Yes Additional Social history: unable to assess ramírez
[2024-10-22 16:15] LABS: Abs Immature Grans 0.01 10^3/uL (0.0-0.06); Absolute Basophil Count 0.07 10^3/uL (0.0-0.2); Absolute Eosinophil Count 0.13 10^3/uL (0.0-0.7); Absolute Lymphocyte Count 1.62 10^3/uL (1.2-3.4); Absolute Monocyte Count 0.45 10^3/uL (0.1-0.8); Absolute Neutrophil Count 2.33 10^3/uL (1.2-6.7); Basophils % 1.5 %; Eosinophils % 2.8 %; HCT 48.3 % (40.0-50.0); HGB 16.2 g/dL (13.5-17.5); Immature Grans % 0.2 %; Lymphocytes % 35.1 %; MCH 29.6 pg (27.0-33.0); MCHC 33.5 % (32.0-36.0); MCV 88 fL (80-95); MPV 9.5 fL (8.0-11.0); Monocytes % 9.8 %; Neutrophils % 50.6 %; Platelet Count 256 10^3/uL (130-400); RBC 5.48 10^6/uL (4.36-5.78); RDW 13.4 % (11.8-14.1); RDW-SD 43.2 fL; WBC 4.61 10^3/uL (4.4-10.8)
--- NOTE | 2024-10-22 16:35 | DI.RAD_ITS ---
Exam(s) XR CHEST 2V PA LATERAL EXAM: XR CHEST 2V PA LATERAL CLINICAL HISTORY: chest pain. TECHNIQUE: 2D digital imaging was performed. COMPARISON: No exams were available for comparison FINDINGS: 2 views: Heart size is normal. The mediastinum is not widened. Lungs are clear. No infiltrates nor pleural effusions. IMPRESSION: No acute pulmonary findings. DATA REPOSITORY: RADIATION DOSE DELIVERED:
[2024-10-22 16:42] LABS: ALT 44 U/L (16-63); AST 30 U/L (15-37); Albumin 3.7 g/dL (3.4-5.0); Alkaline Phosphatase 43 U/L (46-116); Anion Gap 7.6 mmol/L (3-11); BUN 24 mg/dL (7-18); Bilirubin, Total 0.4 mg/dL (0.2-1.0); CO2 29.4 mmol/L (21.0-32.0); CREATININE 1.5 mg/dL (0.70-1.30); Calcium 9.4 mg/dL (8.5-10.1); Chloride 104 mmol/L (98-107); Estimated GFR 54.98 (mL/min/1.73m2); Glucose 104 mg/dL (74-106); Lipase 35 U/L (<78); Magnesium 1.7 mg/dL (1.8-2.4); Potassium 4.6 mmol/L (3.5-5.1); Sodium 141 mmol/L (136-145); TSH (W/Ref FT4) 1.45 uIU/mL (0.36-3.74); Total Protein 7.4 g/dL (6.4-8.2); Troponin I 6 ng/L (<or=76)
[2024-10-22 17:22] LABS: Troponin I 5 ng/L (<or=76)
[2024-10-22 17:45] VITALS: BP 165/101; PULSE 67; RESP 18; O2SAT 97
== END 2024-10-22 17:48 | disposition home or self-care (01) ==
PROVIDERS: Emergency Provider Emergency Medicine; PCP Physician Assistant
DX: R07.9 Chest pain, unspecified (principal); E78.5 Hyperlipidemia, unspecified; R00.1 Bradycardia, unspecified; Z87.891 Personal history of nicotine dependence
CPT/HCPCS: 36415; 80053; 83690; 93005; 99285; 71046; 83735; 84443; 84484; 85025; 93010; 99284